=== PATIENT | female | born 1940 | race Caucasian/White ===

== ENCOUNTER 2017-04-04 08:12 | Day surgery (SDC) | payer OTHER ==
[~2017-04-04 08:12] MED LIST: PROPARACAINE 0.5% OPHTH SOL 15ML OS
[2017-04-04] MEDS: OFLOXACIN 0.3 % (OCUFLOX) OPTH SOL 5ML OS (09:21)
[2017-04-04] MEDS: TROPICAMIDE 1% OPHTH SOLN 2ML OS (09:22)
[2017-04-04] MEDS: PHENYLEPHRINE 2.5% OPHTH SOL 2ML OS (09:22)
[2017-04-04] MEDS ORDERED: fentaNYL 100 MCG/2 ML INJECTION (J3010) As Ordered (09:48)
[2017-04-04] MEDS ORDERED: MIDAZOLAM INJ 2 MG/2 ML VIAL (J2250) As Ordered (09:49)
[2017-04-04] MEDS: POVIDONE-IODINE 5% OPHTH PREP SOL 30ML As Ordered (09:50)
[2017-04-04] MEDS: LIDOCAINE 0.75%/EPINEPHRINE 0.025% IN BSS 1ML SYR INTRACAMERAL (OR ONLY) As Ordered (09:54)
[2017-04-04] MEDS: DUOVISC (0.50ML VISCOAT/0.55ML PROVISC) OPHTH KIT As Ordered (09:54)
[2017-04-04] MEDS: ACETYLCHOLINE OPHTH SOLN 1% 2ML (MIOCHOL-E) As Ordered (09:54)
[2017-04-04] MEDS: BALANCED SALT IRRIGATION SOLUTION 500ML BAG (FOR OR EYE MACHINE) As Ordered (09:54)
[2017-04-04] MEDS: CEFUROXIME 1MG/0.1ML INTRACAMERAL INJ As Ordered (09:55)
[2017-04-04] MEDS ORDERED: ONDANSETRON 4MG/2ML VIAL (J2405) As Ordered (10:25)
[2017-04-04] MEDS: ONDANSETRON 4MG/2ML VIAL (J2405) IV (10:27)
[2017-04-04] MEDS: METOCLOPRAMIDE 10 MG TAB PO (11:10)
== END 2017-04-04 11:48 | disposition home or self-care (01) ==
LOC: M SDC 08:12
DX: H25.12 Age-related nuclear cataract, left eye (principal); I10 Essential (primary) hypertension; E78.5 Hyperlipidemia, unspecified; Z87.891 Personal history of nicotine dependence; Z79.899 Other long term (current) drug therapy; Z88.8 Allergy status to other drugs, medicaments and biological substances
CPT/HCPCS: 66984

== ENCOUNTER 2017-04-11 07:29 | Day surgery (SDC) | payer OTHER ==
[2017-04-11] MEDS: PHENYLEPHRINE 2.5% OPHTH SOL 2ML OS (08:00)
[2017-04-11] MEDS ORDERED: LIDOCAINE 1% MDV 20ML VIAL SQ (08:00)
[2017-04-11] MEDS: PROPARACAINE 0.5% OPHTH SOL 15ML OS (08:05)
[2017-04-11] MEDS: TROPICAMIDE 1% OPHTH SOLN 2ML OS (08:10)
[2017-04-11] MEDS: OFLOXACIN 0.3 % (OCUFLOX) OPTH SOL 5ML OS (08:10)
[2017-04-11] MEDS ORDERED: METOCLOPRAMIDE INJ 10MG/2ML VIAL (J2765) As Ordered (08:29)
[2017-04-11] MEDS ORDERED: fentaNYL 100 MCG/2 ML INJECTION (J3010) As Ordered (08:36)
[2017-04-11] MEDS ORDERED: MIDAZOLAM INJ 2 MG/2 ML VIAL (J2250) As Ordered (08:36)
[2017-04-11] MEDS ORDERED: METOCLOPRAMIDE INJ 10MG/2ML VIAL (J2765) IV (09:00)
[2017-04-11] MEDS: POVIDONE-IODINE 5% OPHTH PREP SOL 30ML As Ordered (09:02)
[2017-04-11] MEDS: LIDOCAINE 0.75%/EPINEPHRINE 0.025% IN BSS 1ML SYR INTRACAMERAL (OR ONLY) As Ordered (09:03)
[2017-04-11] MEDS ORDERED: ONDANSETRON 4MG/2ML VIAL (J2405) As Ordered (09:06)
[2017-04-11] MEDS ORDERED: dexameTHASONE 4 MG/ML 1ML VIAL (J1100) As Ordered (09:06)
[2017-04-11] MEDS: BALANCED SALT IRRIGATION SOLUTION 500ML BAG (FOR OR EYE MACHINE) As Ordered (09:08)
[2017-04-11] MEDS: CEFUROXIME 1MG/0.1ML INTRACAMERAL INJ As Ordered (09:09)
[2017-04-11] MEDS: DUOVISC (0.50ML VISCOAT/0.55ML PROVISC) OPHTH KIT As Ordered (09:09)
[2017-04-11] MEDS: ACETYLCHOLINE OPHTH SOLN 1% 2ML (MIOCHOL-E) As Ordered (09:09)
== END 2017-04-11 10:05 | disposition home or self-care (01) ==
LOC: M SDC 07:29
DX: H25.11 Age-related nuclear cataract, right eye (principal); I11.9 Hypertensive heart disease without heart failure; F17.210 Nicotine dependence, cigarettes, uncomplicated; M19.90 Unspecified osteoarthritis, unspecified site; Z79.899 Other long term (current) drug therapy
CPT/HCPCS: 66984

== ENCOUNTER 2018-11-03 22:36 | Emergency (ER) | payer MEDICARE, OTHER ==
[~2018-11-03] VITALS: Ht 134.6 cm; Wt 81.8 kg
[~2018-11-03 22:36] MED LIST changes: +ACET650T3 PO; +ALLE180T33 PO; +AMLO10TA5 PO; +AMLO5TAB6 PO; +ASTE0.15; +ATOR1TAB19 PO; +AZEL0.1S3; +DRIS50003 PO; +FOSA70TA PO; +FURO20TA2 PO; +HYDR-3910 PO; +HYDR12.55 PO; +POTA10TA16 PO; +PROAAER10 INH; -PROPARACAINE 0.5% OPHTH SOL 15ML OS; +VITA200015 PO
[2018-11-03 23:28] VITALS: BP 160/90
--- NOTE | 2018-11-04 07:38 | REP ---
Clinical: Trauma. Technique: AP and lateral views of the right humerus. Findings: Comminuted intercondylar fracture of the distal humerus. Remainder examination demonstrates age-related degenerative change. Impression: Comminuted intercondylar fracture of the distal humerus. Electronically Signed by Raphael Vincent MD 11/04/2018 07:30 A
--- NOTE | 2018-11-04 07:47 | REP ---
Clinical: Trauma. Technique: AP, lateral, bilateral oblique views of the right elbow. Findings: Comminuted intercondylar/supracondylar fracture of the distal humerus. Underlying osteopenia and degenerative changes are appreciated. Subtle injuries involving the radial head cannot be excluded. Impression: Comminuted intercondylar/supracondylar fracture of the distal humerus. Electronically Signed by Raphael Vincent MD 11/04/2018 07:38 A
== END 2018-11-04 02:34 | disposition home or self-care (01) ==
LOC: M ED 22:36
DX: S42.401A Unspecified fracture of lower end of right humerus, initial encounter for closed fracture (principal); W01.198A Fall on same level from slipping, tripping and stumbling with subsequent striking against other object, initial encounter; Y92.018 Other place in single-family (private) house as the place of occurrence of the external cause; J45.909 Unspecified asthma, uncomplicated; I10 Essential (primary) hypertension; E78.5 Hyperlipidemia, unspecified; Z79.899 Other long term (current) drug therapy; Z88.8 Allergy status to other drugs, medicaments and biological substances

== ENCOUNTER 2018-11-07 12:30 | Emergency (ER) | payer MEDICARE ==
[~2018-11-07] VITALS: Ht 134.6 cm; Wt 81.8 kg
[2018-11-07 15:26] VITALS: BP 148/70
== END 2018-11-07 15:28 | disposition home or self-care (01) ==
LOC: M ED 12:30
DX: Z47.89 Encounter for other orthopedic aftercare (principal); Z88.8 Allergy status to other drugs, medicaments and biological substances; Z79.899 Other long term (current) drug therapy

== ENCOUNTER 2018-12-31 09:41 | Outpatient (RCR) | payer MEDICARE | END 2019-01-01 | LOC: M PT 09:41 | PROVIDERS: ATTEND Physician Assistant Surgical | DX: S42.42 Comminuted supracondylar fracture without intercondylar fracture of humerus (principal); X58.XXXD Exposure to other specified factors, subsequent encounter ==

== ENCOUNTER 2019-01-27 11:51 | Outpatient (RCR) | payer MEDICARE | END 2019-01-31 | LOC: M PT 11:51 | PROVIDERS: ATTEND Physician Assistant Surgical | DX: Z47.89 Encounter for other orthopedic aftercare (principal) ==

== ENCOUNTER 2019-02-05 10:39 | Outpatient (RCR) | payer MEDICARE | END 2019-03-03 | LOC: M PT 10:39 | PROVIDERS: ATTEND Physician Assistant Surgical | DX: S42.42 Comminuted supracondylar fracture without intercondylar fracture of humerus (principal); X58.XXXD Exposure to other specified factors, subsequent encounter ==

== ENCOUNTER → 2020-03-01 | Outpatient (REF) | payer MEDICARE ==
[~2020-03-01] MED LIST changes: -AMLO10TA5 PO; +AMLO1TAB24 PO; +AMLO1TAB25 PO; -AMLO5TAB6 PO
[2020-03-01 16:44] LABS: BACTERIA, URINE AUTO 2+ (NEGATIVE); MUCUS, URINE SMALL (NEGATIVE); RBC, URINE AUTO 29 /HPF (0-3); SQUAMOUS EPITHELIAL CELL UR AU 5 /HPF (0-6); WBC, URINE AUTO 74 /HPF (0-3)
== END ==
LOC: M LAB REF 16:18
PROVIDERS: ATTEND Internal Medicine
DX: R31.9 Hematuria, unspecified (principal); N39.0 Urinary tract infection, site not specified

== ENCOUNTER → 2020-03-28 | Outpatient (REF) | payer MEDICARE | LOC: M LAB REF 16:12 | PROVIDERS: ATTEND Internal Medicine | DX: N39.0 Urinary tract infection, site not specified (principal) ==

== ENCOUNTER → 2020-05-02 | Outpatient (REF) | payer MEDICARE | LOC: M LAB REF 12:19 | PROVIDERS: ATTEND Internal Medicine | DX: N39.0 Urinary tract infection, site not specified (principal) ==

== ENCOUNTER → 2020-05-17 | Outpatient (REF) | payer MEDICARE | LOC: M LAB REF 17:19 | PROVIDERS: ATTEND Internal Medicine | DX: R31.9 Hematuria, unspecified (principal); N39.0 Urinary tract infection, site not specified ==

== ENCOUNTER → 2020-06-01 | Outpatient (REF) | payer MEDICARE ==
[2020-06-01 13:01] LABS: BACTERIA, URINE AUTO NEGATIVE (NEGATIVE); RBC, URINE AUTO TNTC /HPF (0-3); SQUAMOUS EPITHELIAL CELL UR AU 3 /HPF (0-6); WBC, URINE AUTO TNTC /HPF (0-3)
== END ==
LOC: M LAB REF 12:08
PROVIDERS: ATTEND Internal Medicine
DX: R35.0 Frequency of micturition (principal)

== ENCOUNTER → 2020-10-31 | Outpatient (REF) | payer MEDICARE ==
[2020-11-02 08:02] LABS: PERCENT SATURATION 11.1 % (13.2-45.0)
== END ==
LOC: M LAB REF 15:55
PROVIDERS: ATTEND Internal Medicine
DX: N18.31 Chronic kidney disease, stage 3a (principal); D64.9 Anemia, unspecified

== ENCOUNTER → 2020-11-24 | Outpatient (CLI) | payer MEDICARE ==
--- NOTE | 2020-11-24 14:22 | REP ---
INDICATION: PVCS. COMPARISON: PA and lateral chest, 05/14/2016. TECHNIQUE: PA and lateral chest images were obtained. FINDINGS: There is chronic interstitial lung disease. There is no evidence of lobar consolidation or pleural effusion. There is cardiomegaly without congestive heart failure. There is calcific vascular disease of the thoracic aorta. The upper abdominal bowel gas pattern is normal. There are no significant bony abnormalities of the chest. IMPRESSION: 1. Chronic interstitial lung disease. 2. Cardiomegaly. 3. No evidence of acute cardiopulmonary pathology. <Electronically signed by Navin Lee > 11/24/20 [id number]
== END ==
LOC: M WUC 13:21
PROVIDERS: ATTEND Internal Medicine
DX: J94.8 Other specified pleural conditions (principal)

== ENCOUNTER → 2021-02-07 | Outpatient (CLI) | payer MEDICARE ==
[2021-02-07 16:39] LABS: ALBUMIN 2.8 GM/DL (3.2-5.2); CALCIUM LEVEL 8.9 MG/DL (8.8-10.2); CREATININE FOR GFR 1.58 MG/DL (0.55-1.30); GLOMERULAR FILTRATION RATE 33.4 (>32); MAGNESIUM LEVEL 1.9 MG/DL (1.8-2.4); PHOSPHORUS LEVEL 4.2 MG/DL (2.5-4.9); POTASSIUM SERUM 3.8 MEQ/L (3.5-5.1)
== END ==
LOC: M WUC 10:16
PROVIDERS: ATTEND Internal Medicine Cardiovascular Disease
DX: I11.9 Hypertensive heart disease without heart failure (principal)

== ENCOUNTER → 2021-03-01 | Outpatient (REF) | payer MEDICARE ==
[2021-03-01 17:53] LABS: PERCENT SATURATION 7.3 % (13.2-45.0)
== END ==
LOC: M LAB REF 16:21
PROVIDERS: ATTEND Internal Medicine
DX: D50.9 Iron deficiency anemia, unspecified (principal)

== ENCOUNTER → 2021-03-02 | Outpatient (CLI) | payer MEDICARE ==
--- NOTE | 2021-03-06 20:56 | SLEEPHOME ---
DATE: 03/02/2021 ORDERED BY: Kennedy Mancini MD Diagnostic home sleep testing was performed due to concern for the obstructive sleep apnea syndrome in this patient with a history of cor pulmonale. For testing, a [employer] T3 respiratory monitoring device was used. Continuous record was made of pulse, oxygen saturation, air flow, chest and abdominal strain, and body position. Nine hours and 46 minutes of data were reviewed. There were 5 hours and 19 minutes marked as time in bed. During the interval marked time in bed, there were 36 respiratory events identified of 10 seconds in duration or greater for a respiratory event index of 6.8. The events were obstructive. Baseline pulse rate was 66. Pulse rate ranged 41 to 101. Baseline saturation was just 90%. Saturations fell to 79% and the oxygen desaturation index was 3.4. Testing was performed in both the supine and nonsupine positions. IMPRESSION: Abnormal home sleep testing with repetitive respiratory events and oxygen desaturations to 79% with a respiratory event index of 6.8 is consistent with the obstructive sleep apnea syndrome. RECOMMENDATION: The patient should be encouraged to undergo a formal sleep evaluation.
== END ==
LOC: M SLEEP HO 02-20 10:23
PROVIDERS: ATTEND Internal Medicine Cardiovascular Disease
DX: R60.0 Localized edema (principal); I27.81 Cor pulmonale (chronic)

== ENCOUNTER → 2021-04-18 | Outpatient (REF) | payer MEDICARE ==
[~2021-04-18] MED LIST changes: +POTA-149 PO; -POTA10TA16 PO
[2021-04-18 18:16] LABS: TOTAL PROTEIN,RANDOM URINE 158.6 MG/DL (0.0-12.0)
[2021-04-19 09:45] LABS: TOTAL PROTEIN 6.6 GM/DL (6.4-8.2)
[2021-04-19 13:01] LABS: ALPHA-1-GLOBULINS 0.46 GM/DL (0.17-0.41); ALPHA-2-GLOBULINS 0.96 GM/DL (0.42-0.99); ALPHA-2-GLOBULINS % 14.5 % (7.1-11.8); BETA-1-GLOBULINS % 7.6 % (4.7-7.2); BETA-2-GLOBULINS 0.36 GM/DL (0.19-0.55); BETA-2-GLOBULINS % 5.5 % (3.2-6.5); GAMMA GLOBULIN % 15.4 % (11.1-18.8); GAMMA GLOBULINS 1.02 GM/DL (0.65-1.58)
== END ==
LOC: M LAB REF 17:01
PROVIDERS: ATTEND Internal Medicine Nephrology
DX: N18.32 Chronic kidney disease, stage 3b (principal); D63.1 Anemia in chronic kidney disease

== ENCOUNTER 2021-04-24 12:35 | Outpatient (CLI) | payer MEDICARE ==
[~2021-04-24] VITALS: Ht 123.2 cm; Wt 78.6 kg
[~2021-04-24 12:35] MED LIST changes: +ALBUTEROL SULFATE 2.5 MG/0.5 ML INH NEB SOLN INH PRN; +EPINEPHrine INJ 1 MG/ML 1ML AMP IM PRN; +IRON SUCROSE 25 MG in NS 25 ML IV ONE; +IRON SUCROSE 500 MG in NS 475 ML IV ONE; +NS 1,000 ML IV SCH; +diphenhydrAMINE 50MG/ML VIAL (J1200) IV PRN; +methylPREDNISolone 125MG 2ML VIAL IV PRN
[2021-04-24 13:03] VITALS: BP 177/72
[2021-04-24 14:14] VITALS: BP 131/59
[2021-04-24 15:10] VITALS: BP 150/66
[2021-04-24 16:10] VITALS: BP 143/72
[2021-04-24 17:28] VITALS: BP 132/78
[2021-04-24 18:00] VITALS: BP 133/58
== END 2021-04-24 18:20 | disposition home or self-care (01) ==
LOC: M INFU 12:35
PROVIDERS: ATTEND Internal Medicine Nephrology
DX: N18.9 Chronic kidney disease, unspecified (principal); D63.1 Anemia in chronic kidney disease; Z88.6 Allergy status to analgesic agent
CPT/HCPCS: 96365; 96366; J1756

== ENCOUNTER → 2021-05-04 | Outpatient (CLI) | payer MEDICARE ==
[~2021-05-04] MED LIST changes: -ALBUTEROL SULFATE 2.5 MG/0.5 ML INH NEB SOLN INH PRN; -EPINEPHrine INJ 1 MG/ML 1ML AMP IM PRN; -IRON SUCROSE 25 MG in NS 25 ML IV ONE; -IRON SUCROSE 500 MG in NS 475 ML IV ONE; -NS 1,000 ML IV SCH; -diphenhydrAMINE 50MG/ML VIAL (J1200) IV PRN; -methylPREDNISolone 125MG 2ML VIAL IV PRN
== END ==
LOC: M RAD 11:58
PROVIDERS: ATTEND Internal Medicine Nephrology
DX: N18.31 Chronic kidney disease, stage 3a (principal)

== ENCOUNTER → 2021-05-18 | Outpatient (CLI) | payer MEDICARE ==
[~2021-05-18] MED LIST changes: +ACET650T15 PO; +ADV250INH INH; +AZEL0.1S NARES; +FARX1TAB3 PO; +FERR324T2 PO; +META0.52 PO; +METO1TAB32 PO; +SENN-111 PO; +TORS10TA3 PO; +VITA100093 PO
== END ==
LOC: M LABSMTC 10:08
PROVIDERS: ATTEND Anesthesiology
DX: Z01.818 Encounter for other preprocedural examination (principal); Z11.52 Encounter for screening for COVID-19

== ENCOUNTER 2021-05-23 09:34 | Day surgery (SDC) | payer MEDICARE ==
[~2021-05-23] VITALS: Ht 134.6 cm; Wt 78.5 kg
[~2021-05-23 09:34] MED LIST changes: +LIDOCAINE 2% 100MG/5ML SDV (FOR ANES.) As Ordered ONE; +NS 1,000 ML IV ONE; +fentaNYL 100 MCG/2 ML INJECTION As Ordered ONE; +propofoL 200 MG/20 ML VIAL As Ordered ONE
[2021-05-23] MEDS ORDERED: LABETALOL 100MG/20ML VIAL As Ordered ONE (10:36)
[2021-05-23 12:05] VITALS: BP 136/77
== END 2021-05-23 13:03 | disposition home or self-care (01) ==
LOC: M OPP 09:34
PROVIDERS: ATTEND Internal Medicine Gastroenterology
DX: D12.6 Benign neoplasm of colon, unspecified (principal); C20 Malignant neoplasm of rectum; K62.89 Other specified diseases of anus and rectum; D49.0 Neoplasm of unspecified behavior of digestive system; K57.30 Diverticulosis of large intestine without perforation or abscess without bleeding; K56.690 Other partial intestinal obstruction; D50.9 Iron deficiency anemia, unspecified; K20.90 Esophagitis, unspecified without bleeding; R94.31 Abnormal electrocardiogram [ECG] [EKG]; I11.0 Hypertensive heart disease with heart failure; I50.9 Heart failure, unspecified; E78.5 Hyperlipidemia, unspecified; Z78.0 Asymptomatic menopausal state; J44.9 Chronic obstructive pulmonary disease, unspecified; Z88.6 Allergy status to analgesic agent; Z79.899 Other long term (current) drug therapy
CPT/HCPCS: 43239; 45380; 45385; 88305; J3010

== ENCOUNTER → 2021-05-29 | Outpatient (CLI) | payer MEDICARE ==
[~2021-05-29] MED LIST changes: -LIDOCAINE 2% 100MG/5ML SDV (FOR ANES.) As Ordered ONE; -NS 1,000 ML IV ONE; -fentaNYL 100 MCG/2 ML INJECTION As Ordered ONE; -propofoL 200 MG/20 ML VIAL As Ordered ONE
[2021-05-29 15:51] LABS: BASO # 0.1 10^3/uL (0.0-0.2); BASO % 0.5 % (0.0-1.0); EOS # 0.2 10^3/uL (0.0-0.5); HEMATOCRIT 35.8 % (36.0-47.0); HEMOGLOBIN 10.9 g/dl (12.0-15.5); LYMPH # 3.6 10^3/uL (1.5-5.0); LYMPH % 38.2 % (24.0-44.0); MEAN CORPUSCULAR HEMOGLOBIN 26.1 pg (27.0-33.0); MEAN CORPUSCULAR HGB CONC 30.4 g/dl (32.0-36.5); MEAN CORPUSCULAR VOLUME 85.6 fl (80.0-96.0); MONO # 0.7 10^3/uL (0.0-0.8); MONO % 7.4 % (2.0-8.0); NEUTROPHILS # 4.9 10^3/uL (1.5-8.5); NEUTROPHILS % 51.7 % (36.0-66.0); PLATELET COUNT, AUTOMATED 275 10^3/uL (150-450); RED BLOOD COUNT 4.18 10^6/uL (4.00-5.40); WHITE BLOOD COUNT 9.5 10^3/uL (4.0-10.0)
[2021-05-29 15:52] LABS: APPEARANCE, URINE CLOUDY (CLEAR); BACTERIA, URINE AUTO NEGATIVE (NEGATIVE); BILIRUBIN, URINE AUTO NEGATIVE (NEGATIVE); BLOOD, URINE BLOOD 3+ (NEGATIVE); COLOR, URINE YELLOW (YELLOW); GLUCOSE, URINE (UA) AUTO 3+ mg/dL (NEGATIVE); KETONE, URINE AUTO NEGATIVE (NEGATIVE); LEUKOCYTE ESTERASE, URINE AUTO TRACE (NEGATIVE); NITRITE, URINE AUTO NEGATIVE (NEGATIVE); PROTEIN, URINE AUTO 2+ mg/dL (NEGATIVE); RBC, URINE AUTO TNTC /HPF (0-3); SPECIFIC GRAVITY URINE AUTO 1.018 (1.002-1.035); SQUAMOUS EPITHELIAL CELL UR AU 5 /HPF (0-6); UROBILINOGEN, URINE AUTO 0.2 mg/dL (0.0-2.0); WBC, URINE AUTO TNTC /HPF (0-3)
[2021-05-29 16:29] LABS: ALBUMIN 2.8 GM/DL (3.2-5.2); CALCIUM LEVEL 8.5 MG/DL (8.8-10.2); CREATININE FOR GFR 1.26 MG/DL (0.55-1.30); GLOMERULAR FILTRATION RATE 43.4 (>32); PHOSPHORUS LEVEL 3.6 MG/DL (2.5-4.9); POTASSIUM SERUM 3.5 MEQ/L (3.5-5.1)
== END ==
LOC: M WUC 13:34
PROVIDERS: ATTEND Internal Medicine Nephrology
DX: N18.32 Chronic kidney disease, stage 3b (principal); D63.1 Anemia in chronic kidney disease

== ENCOUNTER → 2021-05-29 | Outpatient (CLI) | payer MEDICARE ==
[2021-05-29 15:52] LABS: BASO % 0.4 % (0.0-1.0); EOS # 0.2 10^3/uL (0.0-0.5); HEMATOCRIT 35.9 % (36.0-47.0); LYMPH # 3.3 10^3/uL (1.5-5.0); LYMPH % 37.1 % (24.0-44.0); MEAN CORPUSCULAR HEMOGLOBIN 25.9 pg (27.0-33.0); MEAN CORPUSCULAR HGB CONC 30.6 g/dl (32.0-36.5); MEAN CORPUSCULAR VOLUME 84.7 fl (80.0-96.0); MONO # 0.7 10^3/uL (0.0-0.8); NEUTROPHILS # 4.7 10^3/uL (1.5-8.5); NEUTROPHILS % 52.2 % (36.0-66.0); PLATELET COUNT, AUTOMATED 262 10^3/uL (150-450); RED BLOOD COUNT 4.24 10^6/uL (4.00-5.40)
[2021-05-29 16:29] LABS: CALCIUM LEVEL 8.6 MG/DL (8.8-10.2); CREATININE FOR GFR 1.21 MG/DL (0.55-1.30); GLOMERULAR FILTRATION RATE 45.5 (>32); MAGNESIUM LEVEL 2.3 MG/DL (1.8-2.4); POTASSIUM SERUM 3.5 MEQ/L (3.5-5.1)
[2021-05-29 17:15] LABS: HEMOGLOBIN A1c 5.6 %
== END ==
LOC: M WUC 13:30
PROVIDERS: ATTEND Internal Medicine
DX: I50.32 Chronic diastolic (congestive) heart failure (principal); I13.0 Hypertensive heart and chronic kidney disease with heart failure and stage 1 through stage 4 chronic kidney disease, or unspecified chronic kidney disease; R73.09 Other abnormal glucose; N18.9 Chronic kidney disease, unspecified; D50.0 Iron deficiency anemia secondary to blood loss (chronic)

== ENCOUNTER → 2021-05-29 | Outpatient (CLI) | payer MEDICARE ==
[2021-05-29 15:52] LABS: BASO % 0.4 % (0.0-1.0); EOS # 0.2 10^3/uL (0.0-0.5); HEMATOCRIT 35.8 % (36.0-47.0); HEMOGLOBIN 10.8 g/dl (12.0-15.5); LYMPH # 3.1 10^3/uL (1.5-5.0); LYMPH % 37.4 % (24.0-44.0); MEAN CORPUSCULAR HEMOGLOBIN 25.7 pg (27.0-33.0); MEAN CORPUSCULAR HGB CONC 30.2 g/dl (32.0-36.5); MEAN CORPUSCULAR VOLUME 85.2 fl (80.0-96.0); MONO # 0.6 10^3/uL (0.0-0.8); MONO % 7.3 % (2.0-8.0); NEUTROPHILS # 4.4 10^3/uL (1.5-8.5); NEUTROPHILS % 52.7 % (36.0-66.0); PLATELET COUNT, AUTOMATED 221 10^3/uL (150-450); WHITE BLOOD COUNT 8.4 10^3/uL (4.0-10.0)
[2021-05-29 16:19] LABS: CREATININE FOR GFR 1.28 MG/DL (0.55-1.30); GLOMERULAR FILTRATION RATE 42.6 (>32); PHOSPHORUS LEVEL 3.9 MG/DL (2.5-4.9); POTASSIUM SERUM 3.6 MEQ/L (3.5-5.1)
== END ==
LOC: M WUC 13:38
PROVIDERS: ATTEND Internal Medicine Cardiovascular Disease
DX: I50.32 Chronic diastolic (congestive) heart failure (principal); D50.0 Iron deficiency anemia secondary to blood loss (chronic); I13.0 Hypertensive heart and chronic kidney disease with heart failure and stage 1 through stage 4 chronic kidney disease, or unspecified chronic kidney disease; R73.09 Other abnormal glucose; N18.9 Chronic kidney disease, unspecified

== ENCOUNTER → 2021-06-02 | Outpatient (CLI) | payer MEDICARE ==
[~2021-06-02] MED LIST changes: +GASTROGRAFIN SOLUTION 30ML (Q9963) ONE; +ISOVUE-370 76% 100ML VIAL ONE
== END ==
LOC: M PLAIMG 09:03
PROVIDERS: ATTEND Internal Medicine Gastroenterology
DX: C20 Malignant neoplasm of rectum (principal)
CPT/HCPCS: 71270; 74178; Q9963; Q9967

== ENCOUNTER → 2021-06-14 | Outpatient (CLI) | payer MEDICARE ==
[~2021-06-14] MED LIST changes: +ALBU8.5H; -GASTROGRAFIN SOLUTION 30ML (Q9963) ONE; -ISOVUE-370 76% 100ML VIAL ONE; +MIRA3350 PO; +OMEP1CAP73 PO; +SPIR-10 PO
== END ==
LOC: M ONCR 11:11
PROVIDERS: ATTEND General Practice
DX: C20 Malignant neoplasm of rectum (principal); N28.89 Other specified disorders of kidney and ureter; R91.8 Other nonspecific abnormal finding of lung field; Z80.1 Family history of malignant neoplasm of trachea, bronchus and lung; Z87.891 Personal history of nicotine dependence; Z88.6 Allergy status to analgesic agent; Z88.8 Allergy status to other drugs, medicaments and biological substances

== ENCOUNTER → 2021-06-20 | Outpatient (POV) | payer MEDICARE ==
[~2021-06-20] VITALS: Ht 134.6 cm; Wt 74.5 kg
[2021-06-20 11:05] VITALS: BP 140/60
== END ==
LOC: M IRPOV 10:57
PROVIDERS: ATTEND Radiology Diagnostic Radiology
DX: N28.89 Other specified disorders of kidney and ureter (principal)

== ENCOUNTER → 2021-07-10 | Outpatient (CLI) | payer MEDICARE ==
[~2021-07-10] MED LIST changes: +LIDOCAINE 1% MDV 20ML VIAL As Ordered ONE
[2021-07-10 11:49] VITALS: BP 145/60
== END ==
LOC: M IRPRO 08:49
PROVIDERS: ATTEND Surgery
DX: C64.2 Malignant neoplasm of left kidney, except renal pelvis (principal); C20 Malignant neoplasm of rectum

== ENCOUNTER → 2021-07-17 | Outpatient (CLI) | payer MEDICARE ==
[~2021-07-17] MED LIST changes: -LIDOCAINE 1% MDV 20ML VIAL As Ordered ONE
== END ==
LOC: M PLARAD 11:13
PROVIDERS: ATTEND Specialist
DX: C20 Malignant neoplasm of rectum (principal); N28.89 Other specified disorders of kidney and ureter; R91.8 Other nonspecific abnormal finding of lung field
CPT/HCPCS: 78815; A9552

== ENCOUNTER → 2021-07-20 | Outpatient (CLI) | payer MEDICARE | LOC: M ONCR 10:51 | PROVIDERS: ATTEND General Practice | DX: C20 Malignant neoplasm of rectum (principal); C68.0 Malignant neoplasm of urethra; R91.1 Solitary pulmonary nodule ==

== ENCOUNTER 2021-07-21 08:16 | Outpatient (RCR) | payer MEDICARE | END 2021-08-01 | LOC: M ONCR 08:16 | PROVIDERS: ATTEND General Practice | DX: C20 Malignant neoplasm of rectum (principal) ==

== ENCOUNTER 2021-08-08 13:05 | Outpatient (RCR) | payer MEDICARE ==
[2021-08-11] MEDS ORDERED: VITA100093 PO (09:02)
[2021-08-11] MEDS ORDERED: SALI0.6530 NARES (09:02)
[2021-08-21] MEDS ORDERED: LEVO500T4 PO (08:45)
[2021-08-21] MEDS ORDERED: VITMTA PO (13:38)
[2021-08-29] MEDS ORDERED: ONDA-84 PO (09:27)
[2021-08-29] MEDS ORDERED: PROC10TA5 PO (09:27)
[2021-08-29] MEDS ORDERED: LIDO1CRE42 TOP (09:28)
== END 2021-08-31 ==
LOC: M ONCR 13:05
PROVIDERS: ATTEND General Practice
DX: C20 Malignant neoplasm of rectum (principal)

== ENCOUNTER → 2021-08-11 | Outpatient (CLI) | payer MEDICARE ==
[~2021-08-11] MED LIST changes: +HOME MED LIST COMPLETE! XX SCH; +LIDOCAINE 1% MDV 20ML VIAL As Ordered ONE; +SALI0.6530 NARES
[2021-08-11 12:15] VITALS: BP 147/67
== END ==
LOC: M IRPRO 08:17
PROVIDERS: ATTEND General Practice
DX: C78.02 Secondary malignant neoplasm of left lung (principal); J95.811 Postprocedural pneumothorax

== ENCOUNTER → 2021-08-17 | Outpatient (CLI) | payer MEDICARE ==
[~2021-08-17] MED LIST changes: -HOME MED LIST COMPLETE! XX SCH; -LIDOCAINE 1% MDV 20ML VIAL As Ordered ONE
== END ==
LOC: M LABSMTC 11:44
PROVIDERS: ATTEND Anesthesiology
DX: Z20.828 Contact with and (suspected) exposure to other viral communicable diseases (principal); Z11.59 Encounter for screening for other viral diseases

== ENCOUNTER → 2021-08-21 | Outpatient (CLI) | payer MEDICARE ==
[~2021-08-21] MED LIST changes: +LEVO500T4 PO; +LIDOCAINE 1% MDV 20ML VIAL As Ordered ONE; +MIDAZOLAM INJ 2MG/2ML VIAL (J2250 PER 1MG) As Ordered ONE; +NS 1,000 ML IV SCH; +VITMTA PO; +ceFAZolin 2 GM/D5W 50 ML IV BAG (J0690 PER 500MG) As Ordered ONE; +ceFAZolin SOD 2 GM in IV 1 EA IV ONE; +diphenhydrAMINE 50MG/ML VIAL (J1200) As Ordered ONE; +fentaNYL 100 MCG/2 ML INJECTION As Ordered ONE
[2021-08-21 17:00] VITALS: BP 143/86
== END ==
LOC: M IRPRO 12:41
PROVIDERS: ATTEND General Practice
DX: C65.2 Malignant neoplasm of left renal pelvis (principal); C20 Malignant neoplasm of rectum; C78.02 Secondary malignant neoplasm of left lung
CPT/HCPCS: 36561; 99152; 99153; C1769; C1788; C1894; J0690; J1200; J1642; J1644; J2250; J3010

== ENCOUNTER → 2021-09-12 | Outpatient (POV) | payer MEDICARE ==
[~2021-09-12] VITALS: Ht 134.6 cm; Wt 74.5 kg
[~2021-09-12] MED LIST changes: +LIDO1CRE42 TOP; -LIDOCAINE 1% MDV 20ML VIAL As Ordered ONE; -MIDAZOLAM INJ 2MG/2ML VIAL (J2250 PER 1MG) As Ordered ONE; -NS 1,000 ML IV SCH; +ONDA-84 PO; +PROC10TA5 PO; -ceFAZolin 2 GM/D5W 50 ML IV BAG (J0690 PER 500MG) As Ordered ONE; -ceFAZolin SOD 2 GM in IV 1 EA IV ONE; -diphenhydrAMINE 50MG/ML VIAL (J1200) As Ordered ONE; -fentaNYL 100 MCG/2 ML INJECTION As Ordered ONE
[2021-09-12 08:50] VITALS: BP 158/80
== END ==
LOC: M IRPOV 08:37
PROVIDERS: ATTEND Radiology Diagnostic Radiology
DX: Z45.2 Encounter for adjustment and management of vascular access device (principal); Z88.6 Allergy status to analgesic agent; Z88.8 Allergy status to other drugs, medicaments and biological substances

== ENCOUNTER → 2021-09-29 | Outpatient (REF) | payer MEDICARE ==
[2021-09-29 18:19] LABS: CREATININE,RANDOM URINE 66.1 MG/DL
[2021-09-29 18:27] LABS: PERCENT SATURATION 16.1 % (13.2-45.0)
== END ==
LOC: M LAB REF 16:40
PROVIDERS: ATTEND Internal Medicine Nephrology
DX: N18.32 Chronic kidney disease, stage 3b (principal); E61.1 Iron deficiency

== ENCOUNTER → 2021-11-13 | Outpatient (REF) | payer MEDICARE ==
[~2021-11-13] MED LIST changes: +ALEN70TA87 PO; -FOSA70TA PO; +LEVO1TAB39 PO; -LEVO500T4 PO; +TORS5TAB2 PO
[2021-11-13 10:43] LABS: CHOLESTEROL RISK RATIO 3.288 (<5); MAGNESIUM LEVEL 2.2 MG/DL (1.8-2.4); THYROID STIMULATING HORMONE 1.92 uIU/ML (0.358-3.740)
== END ==
LOC: M LAB REF 08:46
PROVIDERS: ATTEND Internal Medicine
DX: D50.9 Iron deficiency anemia, unspecified (principal); I10 Essential (primary) hypertension; E78.5 Hyperlipidemia, unspecified; E11.9 Type 2 diabetes mellitus without complications

== ENCOUNTER → 2021-11-14 | Outpatient (CLI) | payer MEDICARE | LOC: M ONCR 10:31 | PROVIDERS: ATTEND General Practice | DX: C20 Malignant neoplasm of rectum (principal); C65.2 Malignant neoplasm of left renal pelvis; C78.02 Secondary malignant neoplasm of left lung; D64.9 Anemia, unspecified; Z87.891 Personal history of nicotine dependence; Z79.51 Long term (current) use of inhaled steroids; Z79.899 Other long term (current) drug therapy; Z88.8 Allergy status to other drugs, medicaments and biological substances; Z92.21 Personal history of antineoplastic chemotherapy; Z92.3 Personal history of irradiation ==

== ENCOUNTER → 2021-11-21 | Outpatient (CLI) | payer MEDICARE ==
[~2021-11-21] MED LIST changes: +GASTROGRAFIN SOLUTION 30ML (Q9963) As Ordered ONE; +ISOVUE-370 76% 100ML VIAL As Ordered ONE
== END ==
LOC: M RAD 16:05
PROVIDERS: ATTEND General Practice
DX: C65.2 Malignant neoplasm of left renal pelvis (principal); C20 Malignant neoplasm of rectum; K80.20 Calculus of gallbladder without cholecystitis without obstruction; R91.8 Other nonspecific abnormal finding of lung field
CPT/HCPCS: 71260; 74177; Q9963; Q9967

== ENCOUNTER → 2021-11-29 | Outpatient (CLI) | payer MEDICARE ==
[~2021-11-29] MED LIST changes: -GASTROGRAFIN SOLUTION 30ML (Q9963) As Ordered ONE; -ISOVUE-370 76% 100ML VIAL As Ordered ONE
== END ==
LOC: M ONCR 13:40
PROVIDERS: ATTEND General Practice
DX: C20 Malignant neoplasm of rectum (principal); C78.02 Secondary malignant neoplasm of left lung; C65.2 Malignant neoplasm of left renal pelvis; K76.9 Liver disease, unspecified; Z79.2 Long term (current) use of antibiotics; Z79.51 Long term (current) use of inhaled steroids; Z87.891 Personal history of nicotine dependence; Z79.899 Other long term (current) drug therapy; Z88.8 Allergy status to other drugs, medicaments and biological substances; Z92.21 Personal history of antineoplastic chemotherapy; Z92.3 Personal history of irradiation

== ENCOUNTER → 2021-12-14 | Outpatient (CLI) | payer MEDICARE ==
[~2021-12-14] MED LIST changes: +LIDOCAINE 1% MDV 20ML VIAL As Ordered ONE
[2021-12-14 08:45] VITALS: BP 135/88
== END ==
LOC: M IRPRO 08:35
PROVIDERS: ATTEND Nurse Practitioner
DX: D37.6 Neoplasm of uncertain behavior of liver, gallbladder and bile ducts (principal); C20 Malignant neoplasm of rectum

== ENCOUNTER → 2021-12-29 | Outpatient (CLI) | payer MEDICARE ==
[~2021-12-29] MED LIST changes: -LIDOCAINE 1% MDV 20ML VIAL As Ordered ONE
== END ==
LOC: M ONCR 14:06
PROVIDERS: ATTEND General Practice
DX: C20 Malignant neoplasm of rectum (principal); C78.02 Secondary malignant neoplasm of left lung; C65.2 Malignant neoplasm of left renal pelvis; Z79.51 Long term (current) use of inhaled steroids; Z79.899 Other long term (current) drug therapy; Z87.891 Personal history of nicotine dependence; Z88.6 Allergy status to analgesic agent; Z88.8 Allergy status to other drugs, medicaments and biological substances

== ENCOUNTER → 2022-01-08 | Outpatient (REF) | payer MEDICARE ==
[2022-01-08 08:40] LABS: HEMATOCRIT 29.4 % (36.0-47.0); MEAN CORPUSCULAR HGB CONC 30.6 g/dl (32.0-36.5); MEAN CORPUSCULAR VOLUME 107.7 fl (80.0-96.0); PLATELET COUNT, AUTOMATED 116 10^3/uL (150-450); RED BLOOD COUNT 2.73 10^6/uL (4.00-5.40); WHITE BLOOD COUNT 3.9 10^3/uL (4.0-10.0)
[2022-01-08 09:18] LABS: ALBUMIN 2.7 GM/DL (3.2-5.2); BILIRUBIN,TOTAL 0.2 MG/DL (0.2-1.0); CALCIUM LEVEL 8.5 MG/DL (8.8-10.2); CREATININE FOR GFR 1.1 MG/DL (0.55-1.30); GLOMERULAR FILTRATION RATE 50.6 (>32); POTASSIUM SERUM 3.9 MEQ/L (3.5-5.1); TOTAL PROTEIN 6.2 GM/DL (6.4-8.2)
== END ==
LOC: M LAB REF 07:47
PROVIDERS: ATTEND Internal Medicine Cardiovascular Disease
DX: I50.32 Chronic diastolic (congestive) heart failure (principal)

== ENCOUNTER → 2022-03-15 | Outpatient (CLI) | payer MEDICARE ==
[~2022-03-15] MED LIST changes: +GASTROGRAFIN SOLUTION 30ML As Ordered ONE; +ISOVUE-370 76% 100ML VIAL As Ordered ONE
== END ==
LOC: M RAD 11:11
PROVIDERS: ATTEND Specialist
DX: N28.89 Other specified disorders of kidney and ureter (principal); R91.8 Other nonspecific abnormal finding of lung field; C18.9 Malignant neoplasm of colon, unspecified; K80.20 Calculus of gallbladder without cholecystitis without obstruction; K57.30 Diverticulosis of large intestine without perforation or abscess without bleeding
CPT/HCPCS: 71260; 74177; Q9963; Q9967

== ENCOUNTER → 2022-03-23 | Outpatient (CLI) | payer OTHER ==
[~2022-03-23] MED LIST changes: -GASTROGRAFIN SOLUTION 30ML As Ordered ONE; -ISOVUE-370 76% 100ML VIAL As Ordered ONE
== END ==
LOC: M ONCR 08:53
PROVIDERS: ATTEND General Practice
DX: C20 Malignant neoplasm of rectum (principal); C65.2 Malignant neoplasm of left renal pelvis; C78.02 Secondary malignant neoplasm of left lung; D64.9 Anemia, unspecified; R31.9 Hematuria, unspecified; Z79.899 Other long term (current) drug therapy; Z87.891 Personal history of nicotine dependence; Z88.8 Allergy status to other drugs, medicaments and biological substances; Z92.21 Personal history of antineoplastic chemotherapy; Z92.3 Personal history of irradiation

== ENCOUNTER 2022-04-02 10:07 | Outpatient (RCR) | payer OTHER | END 2022-04-03 | LOC: M ONCR 10:07 | PROVIDERS: ATTEND General Practice | DX: C65.2 Malignant neoplasm of left renal pelvis (principal) ==

== ENCOUNTER → 2022-04-24 | Outpatient (REF) | payer OTHER | LOC: M LAB REF 09:33 | PROVIDERS: ATTEND Internal Medicine Cardiovascular Disease | DX: I50.32 Chronic diastolic (congestive) heart failure (principal) ==

== ENCOUNTER 2022-04-30 13:05 | Outpatient (RCR) | payer MEDICARE, OTHER ==
[2022-05-02] MEDS ORDERED: ONDA-84 PO (10:29)
[2022-05-02] MEDS ORDERED: MAGN400T2 PO (10:35)
== END 2022-05-01 ==
LOC: M ONCR 13:05
PROVIDERS: ATTEND General Practice
DX: C65.2 Malignant neoplasm of left renal pelvis (principal); C20 Malignant neoplasm of rectum; C78.02 Secondary malignant neoplasm of left lung

== ENCOUNTER → 2022-06-07 | Outpatient (CLI) | payer OTHER ==
[~2022-06-07] MED LIST changes: +GASTROGRAFIN SOLUTION 30ML As Ordered ONE; +ISOVUE-370 76% 100ML VIAL As Ordered ONE; +MAGN400T2 PO; -SENN-111 PO; +SENN-188 PO
== END ==
LOC: M RAD 13:24
PROVIDERS: ATTEND Specialist
DX: C20 Malignant neoplasm of rectum (principal); C68.0 Malignant neoplasm of urethra
CPT/HCPCS: 71260; 74177; Q9963; Q9967

== ENCOUNTER 2022-06-27 13:43 | Outpatient (RCR) | payer OTHER ==
[~2022-06-27 13:43] MED LIST changes: +ALBU8.5H INH; -GASTROGRAFIN SOLUTION 30ML As Ordered ONE; -ISOVUE-370 76% 100ML VIAL As Ordered ONE
== END 2022-07-01 ==
LOC: M ONCR 13:43
PROVIDERS: ATTEND General Practice
DX: C78.7 Secondary malignant neoplasm of liver and intrahepatic bile duct (principal); C20 Malignant neoplasm of rectum; C65.2 Malignant neoplasm of left renal pelvis; C78.02 Secondary malignant neoplasm of left lung

== ENCOUNTER 2022-07-19 14:23 | Outpatient (RCR) | payer OTHER ==
[~2022-07-19 14:23] MED LIST changes: +CEPH500C PO; +PRED20TA
== END 2022-08-01 ==
LOC: M ONCR 14:23
PROVIDERS: ATTEND General Practice
DX: C78.7 Secondary malignant neoplasm of liver and intrahepatic bile duct (principal); C65.2 Malignant neoplasm of left renal pelvis; C20 Malignant neoplasm of rectum; C78.02 Secondary malignant neoplasm of left lung

== ENCOUNTER → 2022-10-19 | Outpatient (CLI) | payer OTHER ==
[~2022-10-19] MED LIST changes: +BACTDSTA PO; -LIDO1CRE42 TOP; +LIDO30CR18 TOP
== END ==
LOC: M ONCR 14:39
PROVIDERS: ATTEND Radiology Radiation Oncology
DX: C20 Malignant neoplasm of rectum (principal); C65.2 Malignant neoplasm of left renal pelvis; C78.02 Secondary malignant neoplasm of left lung; C78.7 Secondary malignant neoplasm of liver and intrahepatic bile duct; Z71.2 Person consulting for explanation of examination or test findings; Z79.52 Long term (current) use of systemic steroids; Z79.899 Other long term (current) drug therapy; Z87.891 Personal history of nicotine dependence; Z88.8 Allergy status to other drugs, medicaments and biological substances; Z92.3 Personal history of irradiation; Z92.21 Personal history of antineoplastic chemotherapy

== ENCOUNTER → 2023-01-03 | Outpatient (CLI) | payer OTHER ==
[~2023-01-03] MED LIST changes: +GASTROGRAFIN SOLUTION 30ML As Ordered ONE; +ISOVUE-370 76% 100ML VIAL As Ordered ONE
== END ==
LOC: M RAD 11:45
PROVIDERS: ATTEND Nurse Practitioner
DX: C18.9 Malignant neoplasm of colon, unspecified (principal)
CPT/HCPCS: 71260; 74177; Q9963; Q9967

== ENCOUNTER → 2023-01-16 | Outpatient (CLI) | payer OTHER ==
[~2023-01-16] MED LIST changes: -GASTROGRAFIN SOLUTION 30ML As Ordered ONE; -ISOVUE-370 76% 100ML VIAL As Ordered ONE
== END ==
LOC: M ONCR 10:02
PROVIDERS: ATTEND General Practice
DX: C78.02 Secondary malignant neoplasm of left lung (principal); C65.2 Malignant neoplasm of left renal pelvis; C78.7 Secondary malignant neoplasm of liver and intrahepatic bile duct; C20 Malignant neoplasm of rectum; Z71.2 Person consulting for explanation of examination or test findings; Z79.51 Long term (current) use of inhaled steroids; Z79.52 Long term (current) use of systemic steroids; Z79.84 Long term (current) use of oral hypoglycemic drugs; Z79.899 Other long term (current) drug therapy; Z87.891 Personal history of nicotine dependence; Z88.6 Allergy status to analgesic agent; Z88.8 Allergy status to other drugs, medicaments and biological substances; Z92.3 Personal history of irradiation; Z92.21 Personal history of antineoplastic chemotherapy

== ENCOUNTER → 2023-03-25 | Outpatient (CLI) | payer OTHER | LOC: M EKG 15:48 | PROVIDERS: ATTEND Specialist | DX: C18.9 Malignant neoplasm of colon, unspecified (principal) ==

== ENCOUNTER → 2023-05-08 | Outpatient (CLI) | payer OTHER ==
[~2023-05-08] MED LIST changes: +GASTROGRAFIN SOLUTION 30ML As Ordered ONE; -HYDR-3910 PO; +HYDR25TA87 PO; +ISOVUE-370 76% 100ML VIAL As Ordered ONE; -SALI0.6530 NARES; +SODI88SP NARES
== END ==
LOC: M RAD 12:34
PROVIDERS: ATTEND Specialist
DX: C18.9 Malignant neoplasm of colon, unspecified (principal)
CPT/HCPCS: 71260; 74177; Q9963; Q9967

== ENCOUNTER → 2023-05-20 | Outpatient (CLI) | payer OTHER ==
[~2023-05-20] MED LIST changes: +DIPH2.5T14 PO; -GASTROGRAFIN SOLUTION 30ML As Ordered ONE; -ISOVUE-370 76% 100ML VIAL As Ordered ONE
== END ==
LOC: M PLARAD 14:18
PROVIDERS: ATTEND Specialist
DX: C18.8 Malignant neoplasm of overlapping sites of colon (principal)
CPT/HCPCS: 78815; A9552

== ENCOUNTER 2023-05-23 15:40 | Inpatient (IN) | payer OTHER ==
[~2023-05-23] VITALS: Ht 157.5 cm; Wt 57.1 kg
[2023-05-23] MEDS ORDERED: NS 1,000 ML IV SCH (16:00)
[2023-05-23 16:33] LABS: VENOUS BASE EXCESS -4.8 (-2.0-2.0); VENOUS HCO3 20.4 MMOL/L (23.0-27.0); VENOUS O2 SATURATION 73.5 % (60.0-80.0); VENOUS PARTIAL PRESSURE CO2 38.2 mmHg (38.0-50.0); VENOUS PH 7.346 UNITS (7.330-7.430); VENOUS STANDARD HCO3 20.1 MMOL/L; VENOUS TOTAL CO2 21.6 MMOL/L (24.0-28.0)
[2023-05-23 17:07] LABS: ALBUMIN 2.3 G/DL (3.2-5.2); BILIRUBIN,DIRECT 1.1 MG/DL (<0.4); BILIRUBIN,TOTAL 1.6 MG/DL (0.3-1.2); CALCIUM LEVEL 7.7 MG/DL (8.3-10.6); CREATININE FOR GFR 1.16 MG/DL (0.55-1.30); GLOMERULAR FILTRATION RATE 47.5 (>32); POTASSIUM SERUM 3.4 MMOL/L (3.5-5.1); TOTAL PROTEIN 4.8 G/DL (5.7-8.2)
[2023-05-23 17:09] LABS: THYROID STIMULATING HORMONE 5.077 uIU/ML (0.55-4.78)
[2023-05-23] MEDS: NS 1,000 ML IV SCH (17:19)
[2023-05-23] MEDS: CEFEPIME HCL 2 GM in D5W MINI-BAG PLUS 50 ML IV ONE (17:23)
[2023-05-23 17:25] LABS: HEMATOCRIT 30.4 % (36.0-47.0); HEMOGLOBIN 9.5 g/dl (12.0-15.5); LYMPH # 0.4 10^3/uL (1.5-5.0); LYMPH % 40.2 % (24.0-44.0); MEAN CORPUSCULAR HGB CONC 31.3 g/dl (32.0-36.5); MEAN CORPUSCULAR VOLUME 102.4 fl (80.0-96.0); MONO # 0.3 10^3/uL (0.0-0.8); MONO % 27.5 % (2.0-8.0); NEUTROPHILS # 0.3 10^3/uL (1.5-8.5); NEUTROPHILS % 28.3 % (36.0-66.0); RED BLOOD COUNT 2.97 10^6/uL (4.00-5.40)
[2023-05-23 17:26] LABS: PLATELET COUNT, AUTOMATED 20 10^3/uL (150-450)
[2023-05-23] MEDS ORDERED: ISOVUE-370 76% 100ML VIAL As Ordered ONE (17:26)
[2023-05-23] MEDS ORDERED: MULT-90 PO (19:51)
[2023-05-23] MEDS ORDERED: ONDA-84 PO (19:51)
[2023-05-23] MEDS ORDERED: DIPH2.5T15 PO (19:51)
[2023-05-23] MEDS ORDERED: HOME MED LIST COMPLETE! XX SCH (19:55)
[2023-05-23] MEDS ORDERED: ALBUTEROL 90 MCG/ACT 8GM HFA INHALER INH PRN (21:15)
[2023-05-23] MEDS ORDERED: IPRATROPIUM 0.5MG/ALBUTEROL 2.5MG INH SOL UD 3ML (DUONEB) NEB PRN (21:15)
[2023-05-23] MEDS ORDERED: VANCOMYCIN HCL 1 MG in IV FLUID PLACE HOLDER 1 EA IV SCH (21:15)
[2023-05-23] MEDS ORDERED: SODIUM CHLORIDE NASAL 0.65% SPRAY BTL (OCEAN) PRN (21:15)
[2023-05-23] MEDS ORDERED: AZELASTINE 137MCG NASAL SPY 30 ML (ASTELIN) PRN (21:15)
[2023-05-23] MEDS: ATORVASTATIN 10 MG TAB PO SCH (21:56)
[2023-05-23] MEDS: KCL 10MEQ/100ML SWI (KRUN) 100 ML IV ONE (21:57)
[2023-05-23] MEDS: NS 1,000 ML IV STA (22:06)
[2023-05-23 22:41] VITALS: BP 142/66; TEMP 101.1; O2SAT 98
[2023-05-23] MEDS: metroNIDAZOLE 500 MG in IV 1 EA IV SCH (23:51)
[2023-05-23] MEDS: ACETAMINOPHEN TAB 650MG DOSE (2X325MG) PO PRN (23:52)
[2023-05-24] VITALS (7 sets, daily range): BP systolic 117–144; BP diastolic 52–64; TEMP 97.8–100.4; O2SAT 94–98
[2023-05-24] MEDS: VANCOMYCIN HCL 750 MG, VIAL MATE ADAPTER 1 EACH in D5W 250 ML IV ONE (01:11)
[2023-05-24] MEDS: VANCOMYCIN HCL 500 MG in D5W MINI-BAG PLUS 100 ML IV ONE (02:29)
[2023-05-24] MEDS: CEFEPIME HCL 2 GM in D5W MINI-BAG PLUS 50 ML IV SCH (05:06)
[2023-05-24 05:27] LABS: HEMATOCRIT 28.3 % (36.0-47.0); HEMOGLOBIN 8.8 g/dl (12.0-15.5); MEAN CORPUSCULAR HEMOGLOBIN 31.8 pg (27.0-33.0); MEAN CORPUSCULAR HGB CONC 31.1 g/dl (32.0-36.5); MEAN CORPUSCULAR VOLUME 102.2 fl (80.0-96.0); RED BLOOD COUNT 2.77 10^6/uL (4.00-5.40); WHITE BLOOD COUNT 1.1 10^3/uL (4.0-10.0)
[2023-05-24 05:28] LABS: PLATELET COUNT, AUTOMATED 25 10^3/uL (150-450)
[2023-05-24 06:09] LABS: ALBUMIN 1.9 G/DL (3.2-5.2); ALKALINE PHOSPHATASE 285 U/L (46-116); ALT/SGPT 9 U/L (7.0-40); AST/SGOT < 8 U/L (<34); BLOOD UREA NITROGEN 18 MG/DL (9-23); CALCIUM LEVEL 6.7 MG/DL (8.3-10.6); CARBON DIOXIDE LEVEL 22 MMOL/L (20-31); CHLORIDE LEVEL 114 MMOL/L (98-107); CREATININE FOR GFR 1.14 MG/DL (0.55-1.30); GLOMERULAR FILTRATION RATE 48.5 (>32); GLUCOSE, FASTING 108 MG/DL (74-106); POTASSIUM SERUM 3.3 MMOL/L (3.5-5.1); SODIUM LEVEL 142 MMOL/L (136-145); TOTAL PROTEIN 4.2 G/DL (5.7-8.2)
[2023-05-24 06:14] LABS: ATYPICAL LYMPH 28 % (0-5); EOSINOPHILS 2 % (0-3); LYMPHOCYTES 35 % (16-44); METAMYELOCYTES 1 % (0-0); MONOCYTES 8 % (0-5); NEUTROPHILS 24 % (28-66); PLATELET ESTIMATE MARKED DECREASE (NORMAL)
[2023-05-24] MEDS: POTASSIUM CHLORIDE 10MEQ SR TABLET PO ONE (06:33)
[2023-05-24] MEDS: ADVAIR HFA 115/21MCG INHALER INH SCH (07:29)
[2023-05-24] MEDS ORDERED: LACTOBACILLUS ACIDOPHILUS CAP (BACID) PO SCH (08:00)
[2023-05-24] MEDS: VANCOMYCIN HCL 750 MG, VIAL MATE ADAPTER 1 EACH in D5W 250 ML IV SCH (10:13)
[2023-05-24] MEDS: FILGRASTIM 480 MCG/0.8 ML SYRINGE **SC ADMINISTRATION ONLY SC SCH (10:13)
[2023-05-24] MEDS: LR 1,000 ML IV SCH (10:14)
[2023-05-24] MEDS: PIPERACILLIN/TAZOBACTAM SOD 3.375 GM in D5W MINI-BAG PLUS 50 ML IV SCH (13:09)
[2023-05-24] MEDS: LOMOTIL 2.5MG/0.025MG TABLET PO SCH (18:14)
[2023-05-24] MEDS: CALCIUM CARBONATE 500 MG CHEW U/D PO STA (23:29)
[2023-05-25 04:13] VITALS: BP 120/57; TEMP 98.4; O2SAT 96
[2023-05-25 05:49] LABS: BASO % 0.9 % (0.0-1.0); EOS % 0.5 % (0.0-3.0); HEMATOCRIT 24.3 % (36.0-47.0); HEMOGLOBIN 7.6 g/dl (12.0-15.5); LYMPH # 0.5 10^3/uL (1.5-5.0); MEAN CORPUSCULAR HEMOGLOBIN 31.9 pg (27.0-33.0); MEAN CORPUSCULAR HGB CONC 31.3 g/dl (32.0-36.5); MEAN CORPUSCULAR VOLUME 102.1 fl (80.0-96.0); MONO # 0.2 10^3/uL (0.0-0.8); MONO % 11.2 % (2.0-8.0); NEUTROPHILS # 1.4 10^3/uL (1.5-8.5); NEUTROPHILS % 64.5 % (36.0-66.0); RED BLOOD COUNT 2.38 10^6/uL (4.00-5.40); WHITE BLOOD COUNT 2.1 10^3/uL (4.0-10.0)
[2023-05-25 05:57] LABS: PLATELET COUNT, AUTOMATED 27 10^3/uL (150-450)
[2023-05-25 06:13] LABS: ALBUMIN 1.7 G/DL (3.2-5.2); ALKALINE PHOSPHATASE 207 U/L (46-116); ALT/SGPT < 9 U/L (7.0-40); AST/SGOT < 8 U/L (<34); BILIRUBIN,TOTAL 0.7 MG/DL (0.3-1.2); BLOOD UREA NITROGEN 16 MG/DL (9-23); CALCIUM LEVEL 7.3 MG/DL (8.3-10.6); CARBON DIOXIDE LEVEL 22 MMOL/L (20-31); CHLORIDE LEVEL 115 MMOL/L (98-107); CREATININE FOR GFR 1.28 MG/DL (0.55-1.30); GLOMERULAR FILTRATION RATE 42.4 (>32); GLUCOSE, FASTING 97 MG/DL (74-106); POTASSIUM SERUM 3.1 MMOL/L (3.5-5.1); SODIUM LEVEL 143 MMOL/L (136-145); TOTAL PROTEIN 3.8 G/DL (5.7-8.2)
[2023-05-25 08:29] VITALS: BP 123/53; TEMP 96.8; O2SAT 97
[2023-05-25] MEDS: POTASSIUM CHLORIDE 10MEQ SR TABLET PO SCH (08:32)
[2023-05-25 13:08] VITALS: BP 124/78; TEMP 97.1; O2SAT 98
[2023-05-25 16:00] VITALS: BP 148/65; TEMP 96.9; O2SAT 97
[2023-05-25 19:42] VITALS: BP 123/60; TEMP 97.8; O2SAT 99
[2023-05-25 23:13] VITALS: BP 120/60; TEMP 97.6; O2SAT 98
[2023-05-25] MEDS: CALCIUM CARBONATE 500 MG CHEW U/D PO PRN (23:36)
[2023-05-26 03:17] VITALS: BP 123/56; TEMP 98.2; O2SAT 95
[2023-05-26 05:22] LABS: HEMATOCRIT 26.8 % (36.0-47.0); HEMOGLOBIN 8.3 g/dl (12.0-15.5); MEAN CORPUSCULAR VOLUME 103.5 fl (80.0-96.0); PLATELET COUNT, AUTOMATED 39 10^3/uL (150-450); RED BLOOD COUNT 2.59 10^6/uL (4.00-5.40); WHITE BLOOD COUNT 6.4 10^3/uL (4.0-10.0)
[2023-05-26 05:48] LABS: LYMPHOCYTES 17 % (16-44); MONOCYTES 3 % (0-5); NEUTROPHILS 77 % (28-66); PLATELET ESTIMATE MARKED DECREASE (NORMAL)
[2023-05-26 05:49] LABS: ALBUMIN 1.8 G/DL (3.2-5.2); ALKALINE PHOSPHATASE 185 U/L (46-116); ALT/SGPT < 9 U/L (7.0-40); ANISOCYTOSIS 1+; AST/SGOT < 8 U/L (<34); BILIRUBIN,TOTAL 0.7 MG/DL (0.3-1.2); BLOOD UREA NITROGEN 14 MG/DL (9-23); CALCIUM LEVEL 7.5 MG/DL (8.3-10.6); CARBON DIOXIDE LEVEL 23 MMOL/L (20-31); CHLORIDE LEVEL 114 MMOL/L (98-107); CREATININE FOR GFR 1.52 MG/DL (0.55-1.30); GLOMERULAR FILTRATION RATE 34.8 (>32); GLUCOSE, FASTING 76 MG/DL (74-106); POTASSIUM SERUM 3.2 MMOL/L (3.5-5.1); SODIUM LEVEL 145 MMOL/L (136-145); TOTAL PROTEIN 4.1 G/DL (5.7-8.2)
[2023-05-26 07:34] VITALS: BP 121/55; TEMP 98.3; O2SAT 97
[2023-05-26] MEDS: MAG SULF 1GM/100ML (MAG RUN) 100 ML IV SCH (08:17)
[2023-05-26] MEDS: MAGNESIUM OXIDE 400MG TAB (MAG-OX) PO SCH (08:17)
[2023-05-26] MEDS: POTASSIUM CHLORIDE 10MEQ SR TABLET PO ONE (08:18)
[2023-05-26 16:18] VITALS: BP 132/60; TEMP 96.8; O2SAT 97
[2023-05-26 20:01] VITALS: BP 136/59; TEMP 97; O2SAT 97
[2023-05-27 03:49] VITALS: BP 142/63; TEMP 97.5; O2SAT 95
[2023-05-27 05:41] LABS: BASO # 0.1 10^3/uL (0.0-0.2); BASO % 0.6 % (0.0-1.0); EOS % 0.4 % (0.0-3.0); HEMATOCRIT 27.3 % (36.0-47.0); HEMOGLOBIN 8.3 g/dl (12.0-15.5); LYMPH % 9.4 % (24.0-44.0); MEAN CORPUSCULAR HEMOGLOBIN 31.2 pg (27.0-33.0); MEAN CORPUSCULAR HGB CONC 30.4 g/dl (32.0-36.5); MEAN CORPUSCULAR VOLUME 102.6 fl (80.0-96.0); MONO # 0.8 10^3/uL (0.0-0.8); MONO % 7.4 % (2.0-8.0); NEUTROPHILS % 77.1 % (36.0-66.0); RED BLOOD COUNT 2.66 10^6/uL (4.00-5.40); WHITE BLOOD COUNT 10.4 10^3/uL (4.0-10.0)
[2023-05-27 05:51] LABS: PLATELET COUNT, AUTOMATED 49 10^3/uL (150-450)
[2023-05-27 06:14] LABS: ALBUMIN 1.8 G/DL (3.2-5.2); ALKALINE PHOSPHATASE 210 U/L (46-116); ALT/SGPT < 9 U/L (7.0-40); AST/SGOT < 8 U/L (<34); BILIRUBIN,TOTAL 0.5 MG/DL (0.3-1.2); BLOOD UREA NITROGEN 14 MG/DL (9-23); CALCIUM LEVEL 7.8 MG/DL (8.3-10.6); CARBON DIOXIDE LEVEL 23 MMOL/L (20-31); CHLORIDE LEVEL 118 MMOL/L (98-107); CREATININE FOR GFR 1.66 MG/DL (0.55-1.30); GLOMERULAR FILTRATION RATE 31.4 (>32); GLUCOSE, FASTING 73 MG/DL (74-106); POTASSIUM SERUM 4.3 MMOL/L (3.5-5.1); SODIUM LEVEL 146 MMOL/L (136-145)
[2023-05-27 07:42] VITALS: BP 132/64; TEMP 97.9; O2SAT 98
[2023-05-27] MEDS: LR 1,000 ML IV SCH (07:47)
[2023-05-27] MEDS ORDERED: ANTI2TAB16 PO (08:38)
[2023-05-27] MEDS ORDERED: HOME MED LIST COMPLETE! XX SCH (08:40)
[2023-05-27] MEDS: LOPERAMIDE 2 MG CAPLET PO PRN (12:24)
[2023-05-27 20:00] VITALS: BP 140/78; TEMP 98; O2SAT 94
[2023-05-27] MEDS: METOPROLOL SUCC *XL* 25MG TAB (TopROL *XL*) PO SCH (20:28)
[2023-05-27] MEDS: amLODIPine 5 MG TAB PO SCH (20:29)
[2023-05-28 04:00] VITALS: BP 131/60; TEMP 98.2; O2SAT 96
[2023-05-28 05:42] LABS: BASO # 0.1 10^3/uL (0.0-0.2); BASO % 0.7 % (0.0-1.0); EOS # 0.1 10^3/uL (0.0-0.5); EOS % 0.6 % (0.0-3.0); HEMATOCRIT 27.8 % (36.0-47.0); HEMOGLOBIN 8.4 g/dl (12.0-15.5); LYMPH # 1.1 10^3/uL (1.5-5.0); LYMPH % 11.4 % (24.0-44.0); MEAN CORPUSCULAR HEMOGLOBIN 31.8 pg (27.0-33.0); MEAN CORPUSCULAR HGB CONC 30.2 g/dl (32.0-36.5); MEAN CORPUSCULAR VOLUME 105.3 fl (80.0-96.0); MONO # 0.8 10^3/uL (0.0-0.8); MONO % 8.3 % (2.0-8.0); NEUTROPHILS # 7.3 10^3/uL (1.5-8.5); NEUTROPHILS % 73.1 % (36.0-66.0); RED BLOOD COUNT 2.64 10^6/uL (4.00-5.40)
[2023-05-28 05:45] LABS: PLATELET COUNT, AUTOMATED 66 10^3/uL (150-450)
[2023-05-28 06:17] LABS: ALBUMIN 1.7 G/DL (3.2-5.2); ALKALINE PHOSPHATASE 217 U/L (46-116); ALT/SGPT < 9 U/L (7.0-40); AST/SGOT 15 U/L (<34); BILIRUBIN,TOTAL 0.4 MG/DL (0.3-1.2); BLOOD UREA NITROGEN 14 MG/DL (9-23); CALCIUM LEVEL 7.4 MG/DL (8.3-10.6); CARBON DIOXIDE LEVEL 23 MMOL/L (20-31); CHLORIDE LEVEL 116 MMOL/L (98-107); CREATININE FOR GFR 1.68 MG/DL (0.55-1.30); GLUCOSE, FASTING 120 MG/DL (74-106); POTASSIUM SERUM 3.9 MMOL/L (3.5-5.1); SODIUM LEVEL 147 MMOL/L (136-145)
[2023-05-28 08:00] VITALS: BP 138/62; TEMP 97.8; O2SAT 97
[2023-05-28] MEDS: LOPERAMIDE 2 MG CAPLET PO PRN (10:07)
[2023-05-28] MEDS: OCTREOTIDE ACETATE 100MCG/ML VIAL **SC ADMINISTRATION ONLY SC SCH (10:08)
[2023-05-28 12:00] VITALS: BP 136/58; TEMP 97.3; O2SAT 98
[2023-05-28 16:53] VITALS: BP 132/49; TEMP 98.2; O2SAT 96
[2023-05-28 18:39] VITALS: BP 164/82; TEMP 96.6; O2SAT 99
[2023-05-28 21:08] VITALS: BP 140/60; TEMP 98.2; O2SAT 98
[2023-05-29 06:00] VITALS: BP 134/58; TEMP 98.2; O2SAT 98
[2023-05-29 06:18] LABS: BASO # 0.1 10^3/uL (0.0-0.2); BASO % 0.5 % (0.0-1.0); EOS # 0.1 10^3/uL (0.0-0.5); EOS % 0.6 % (0.0-3.0); HEMATOCRIT 26.7 % (36.0-47.0); HEMOGLOBIN 8.1 g/dl (12.0-15.5); LYMPH # 1.2 10^3/uL (1.5-5.0); LYMPH % 11.1 % (24.0-44.0); MEAN CORPUSCULAR HEMOGLOBIN 31.6 pg (27.0-33.0); MEAN CORPUSCULAR HGB CONC 30.3 g/dl (32.0-36.5); MEAN CORPUSCULAR VOLUME 104.3 fl (80.0-96.0); MONO # 0.9 10^3/uL (0.0-0.8); MONO % 8.3 % (2.0-8.0); NEUTROPHILS # 7.8 10^3/uL (1.5-8.5); NEUTROPHILS % 73.1 % (36.0-66.0); RED BLOOD COUNT 2.56 10^6/uL (4.00-5.40); WHITE BLOOD COUNT 10.7 10^3/uL (4.0-10.0)
[2023-05-29 06:20] LABS: PLATELET COUNT, AUTOMATED 74 10^3/uL (150-450)
[2023-05-29 06:29] LABS: CALCIUM LEVEL 7.3 MG/DL (8.3-10.6); CREATININE FOR GFR 1.42 MG/DL (0.55-1.30); GLOMERULAR FILTRATION RATE 37.6 (>32); POTASSIUM SERUM 3.6 MMOL/L (3.5-5.1)
[2023-05-29] MEDS: METAMUCIL (PSYLLIUM) PACKET PO SCH (09:16)
[2023-05-29] MEDS ORDERED: META1POW PO (11:38)
[2023-05-29] MEDS ORDERED: MAGN400T2 PO (11:38)
[2023-05-29] MEDS ORDERED: CALC200T15 PO (11:38)
[2023-05-29] MEDS ORDERED: SODIUM CHLORIDE 0.9% INJ 10 ML SYR IV PRN (14:00)
[2023-05-30] MEDS ORDERED: SODIUM CHLORIDE 0.9% INJ 10 ML SYR IV SCH (09:00)
== END 2023-05-29 14:30 | disposition home health service (06) | DRG 809 ==
LOC: EDBD 15:40 → M ED 15:40 → M ED INP 20:01 → M PCU 22:17 → M MSPAV 05-28 18:34
PROVIDERS: ADMIT Internal Medicine; ATTEND Student in an Organized Health Care Education/Training Program
DX: D70.9 Neutropenia, unspecified (principal); C78.7 Secondary malignant neoplasm of liver and intrahepatic bile duct; C64.2 Malignant neoplasm of left kidney, except renal pelvis; C20 Malignant neoplasm of rectum; K57.92 Diverticulitis of intestine, part unspecified, without perforation or abscess without bleeding; I13.0 Hypertensive heart and chronic kidney disease with heart failure and stage 1 through stage 4 chronic kidney disease, or unspecified chronic kidney disease; C78.00 Secondary malignant neoplasm of unspecified lung; C68.0 Malignant neoplasm of urethra; K52.1 Toxic gastroenteritis and colitis; N17.9 Acute kidney failure, unspecified; I50.9 Heart failure, unspecified; N18.30 Chronic kidney disease, stage 3 unspecified; D50.9 Iron deficiency anemia, unspecified; J44.9 Chronic obstructive pulmonary disease, unspecified; E87.6 Hypokalemia; I27.81 Cor pulmonale (chronic); R50.81 Fever presenting with conditions classified elsewhere; D61.810 Antineoplastic chemotherapy induced pancytopenia; E83.42 Hypomagnesemia; E83.51 Hypocalcemia; E78.5 Hyperlipidemia, unspecified; D55.9 Anemia due to enzyme disorder, unspecified; I34.0 Nonrheumatic mitral (valve) insufficiency; Q77.6 Chondroectodermal dysplasia; Z92.3 Personal history of irradiation; Z88.6 Allergy status to analgesic agent; Z88.8 Allergy status to other drugs, medicaments and biological substances; Z79.899 Other long term (current) drug therapy; Z86.73 Personal history of transient ischemic attack (TIA), and cerebral infarction without residual deficits; Z98.41 Cataract extraction status, right eye; Z98.42 Cataract extraction status, left eye; R19.7 Diarrhea, unspecified

== ENCOUNTER → 2023-06-03 | Outpatient (REF) | payer OTHER ==
[~2023-06-03] MED LIST changes: +ANTI2TAB16 PO; +CALC200T15 PO; +DIPH2.5T15 PO; +META1POW PO; +MULT-90 PO
[2023-06-03 15:44] LABS: HEMOGLOBIN A1c 5.6 % (4.0-6.0)
== END ==
LOC: M LAB REF 14:51
PROVIDERS: ATTEND Internal Medicine
DX: E66.9 Obesity, unspecified (principal); Z79.899 Other long term (current) drug therapy

== ENCOUNTER → 2023-07-16 | Outpatient (REF) | payer OTHER ==
[~2023-07-16] MED LIST changes: +DIPH1TAB80 PO; +DIPH1TAB81 PO; -DIPH2.5T14 PO; -DIPH2.5T15 PO
[2023-07-16 14:23] LABS: BASO % 0.4 % (0.0-1.0); EOS # 0.1 10^3/uL (0.0-0.5); EOS % 1.9 % (0.0-3.0); HEMATOCRIT 26.7 % (36.0-47.0); HEMOGLOBIN 8.1 g/dl (12.0-15.5); LYMPH # 1.4 10^3/uL (1.5-5.0); LYMPH % 26.2 % (24.0-44.0); MEAN CORPUSCULAR HEMOGLOBIN 32.1 pg (27.0-33.0); MEAN CORPUSCULAR HGB CONC 30.3 g/dl (32.0-36.5); MONO # 0.4 10^3/uL (0.0-0.8); MONO % 8.5 % (2.0-8.0); NEUTROPHILS # 3.3 10^3/uL (1.5-8.5); NEUTROPHILS % 62.8 % (36.0-66.0); PLATELET COUNT, AUTOMATED 140 10^3/uL (150-450); RED BLOOD COUNT 2.52 10^6/uL (4.00-5.40); WHITE BLOOD COUNT 5.2 10^3/uL (4.0-10.0)
[2023-07-16 15:42] LABS: ALBUMIN 1.8 G/DL (3.2-5.2); BILIRUBIN,TOTAL 0.4 MG/DL (0.3-1.2); CALCIUM LEVEL 7.5 MG/DL (8.3-10.6); CREATININE FOR GFR 1.15 MG/DL (0.55-1.30); MAGNESIUM LEVEL 1.6 MG/DL (1.8-2.4); POTASSIUM SERUM 2.8 MMOL/L (3.5-5.1); TOTAL PROTEIN 5.3 G/DL (5.7-8.2)
== END ==
LOC: M SHH 13:28
PROVIDERS: ATTEND Internal Medicine
DX: N18.32 Chronic kidney disease, stage 3b (principal); E83.42 Hypomagnesemia; I50.32 Chronic diastolic (congestive) heart failure

== ENCOUNTER → 2023-07-18 | Outpatient (REF) | payer OTHER ==
[2023-07-18 15:24] LABS: ALBUMIN 1.7 G/DL (3.2-5.2); ALKALINE PHOSPHATASE 113 U/L (46-116); ALT/SGPT < 9 U/L (7.0-40); AST/SGOT 16 U/L (<34); BILIRUBIN,TOTAL 0.2 MG/DL (0.3-1.2); BLOOD UREA NITROGEN 22 MG/DL (9-23); CALCIUM LEVEL 7.7 MG/DL (8.3-10.6); CARBON DIOXIDE LEVEL 26 MMOL/L (20-31); CHLORIDE LEVEL 111 MMOL/L (98-107); CREATININE FOR GFR 1.16 MG/DL (0.55-1.30); GLOMERULAR FILTRATION RATE 47.5 (>32); GLUCOSE, FASTING 91 MG/DL (74-106); MAGNESIUM LEVEL 1.6 MG/DL (1.8-2.4); POTASSIUM SERUM 3.8 MMOL/L (3.5-5.1); SODIUM LEVEL 143 MMOL/L (136-145); TOTAL PROTEIN 4.9 G/DL (5.7-8.2)
== END ==
LOC: M SHH 14:30
PROVIDERS: ATTEND Internal Medicine
DX: E87.6 Hypokalemia (principal); E83.42 Hypomagnesemia

== ENCOUNTER → 2023-07-26 | Outpatient (REF) | payer OTHER ==
[2023-07-26 14:30] LABS: BASO % 0.5 % (0.0-1.0); EOS # 0.1 10^3/uL (0.0-0.5); EOS % 2.6 % (0.0-3.0); HEMATOCRIT 26.3 % (36.0-47.0); LYMPH % 22.5 % (24.0-44.0); MEAN CORPUSCULAR HEMOGLOBIN 32.7 pg (27.0-33.0); MEAN CORPUSCULAR HGB CONC 30.4 g/dl (32.0-36.5); MEAN CORPUSCULAR VOLUME 107.3 fl (80.0-96.0); MONO # 0.3 10^3/uL (0.0-0.8); MONO % 7.5 % (2.0-8.0); NEUTROPHILS # 2.9 10^3/uL (1.5-8.5); NEUTROPHILS % 66.7 % (36.0-66.0); PLATELET COUNT, AUTOMATED 174 10^3/uL (150-450); RED BLOOD COUNT 2.45 10^6/uL (4.00-5.40); WHITE BLOOD COUNT 4.3 10^3/uL (4.0-10.0)
[2023-07-26 14:54] LABS: BILIRUBIN,TOTAL 0.3 MG/DL (0.3-1.2); CALCIUM LEVEL 8.1 MG/DL (8.3-10.6); CREATININE FOR GFR 1.02 MG/DL (0.55-1.30); GLOMERULAR FILTRATION RATE 55.1 (>32); POTASSIUM SERUM 4.9 MMOL/L (3.5-5.1); TOTAL PROTEIN 5.8 G/DL (5.7-8.2)
== END ==
LOC: M SHH 13:08
PROVIDERS: ATTEND Internal Medicine
DX: N18.32 Chronic kidney disease, stage 3b (principal); I13.0 Hypertensive heart and chronic kidney disease with heart failure and stage 1 through stage 4 chronic kidney disease, or unspecified chronic kidney disease; I50.32 Chronic diastolic (congestive) heart failure; C54.2 Malignant neoplasm of myometrium

== ENCOUNTER → 2023-08-01 | Outpatient (REF) | payer OTHER ==
[2023-08-01 15:03] LABS: CREATININE FOR GFR 1.09 MG/DL (0.55-1.30); POTASSIUM SERUM 4.9 MMOL/L (3.5-5.1)
== END ==
LOC: M SHH 13:57
PROVIDERS: ATTEND Internal Medicine
DX: E87.6 Hypokalemia (principal)

== ENCOUNTER 2023-09-03 09:52 | Inpatient (IN) | payer OTHER, MEDICAID ==
[~2023-09-03] VITALS: Ht 134.6 cm; Wt 47.7 kg
[2023-09-03 10:41] LABS: BASO % 0.1 % (0.0-1.0); EOS % 0.1 % (0.0-3.0); HEMATOCRIT 25.5 % (36.0-47.0); HEMOGLOBIN 7.7 g/dl (12.0-15.5); LYMPH # 0.9 10^3/uL (1.5-5.0); LYMPH % 5.6 % (24.0-44.0); MEAN CORPUSCULAR HEMOGLOBIN 31.4 pg (27.0-33.0); MEAN CORPUSCULAR HGB CONC 30.2 g/dl (32.0-36.5); MEAN CORPUSCULAR VOLUME 104.1 fl (80.0-96.0); MONO # 0.9 10^3/uL (0.0-0.8); MONO % 5.3 % (2.0-8.0); NEUTROPHILS # 14.8 10^3/uL (1.5-8.5); NEUTROPHILS % 88.4 % (36.0-66.0); PLATELET COUNT, AUTOMATED 245 10^3/uL (150-450); RED BLOOD COUNT 2.45 10^6/uL (4.00-5.40); WHITE BLOOD COUNT 16.7 10^3/uL (4.0-10.0)
[2023-09-03 11:24] LABS: ALBUMIN 3.3 G/DL (3.2-5.2); BILIRUBIN,DIRECT 0.1 MG/DL (<0.4); BILIRUBIN,TOTAL 0.4 MG/DL (0.3-1.2); CALCIUM LEVEL 9.3 MG/DL (8.3-10.6); CREATININE FOR GFR 1.4 MG/DL (0.55-1.30); GLOMERULAR FILTRATION RATE 38.2 (>32); POTASSIUM SERUM 6.5 MMOL/L (3.5-5.1); TOTAL PROTEIN 7.2 G/DL (5.7-8.2)
[2023-09-03] MEDS: NS 1,000 ML IV SCH (12:25)
[2023-09-03] MEDS: ONDANSETRON 4MG 2ML VIAL IV ONE (12:25)
[2023-09-03] MEDS: MORPHINE 2 MG/ML 1ML VIAL IV PRN (12:25)
[2023-09-03] MEDS: PATIROMER SORBITEX CALCIUM 8.4 GM POWDER PACKET (VELTASSA) PO ONE (13:31)
[2023-09-03] MEDS: DEXTROSE 50% 50ML SYRINGE IV ONE (13:31)
[2023-09-03] MEDS: CALCIUM CHLORIDE 10% 1 GM/10 ML SYR IV ONE (13:31)
[2023-09-03] MEDS: SODIUM BICARBONATE 8.4% INJ 50ML SYRINGE IV ONE (13:32)
[2023-09-03] MEDS: HumuLIN R (REGULAR) INSULIN (NovoLIN R) **100U/ML** PER UNIT IV ONE (13:32)
[2023-09-03 13:55] VITALS: BP 137/63; TEMP 97.8; O2SAT 97
[2023-09-03] MEDS ORDERED: LORazepam 1 MG TAB PO PRN (14:20)
[2023-09-03] MEDS ORDERED: AMLO25TA PO (14:20)
[2023-09-03] MEDS ORDERED: VITA200012 PO (14:20)
[2023-09-03] MEDS ORDERED: SLOWTAB2 PO (14:23)
[2023-09-03] MEDS ORDERED: FERR325T3 PO (14:23)
[2023-09-03] MEDS ORDERED: HOME MED LIST COMPLETE! XX SCH (14:25)
[2023-09-03] MEDS ORDERED: ALBUTEROL 90 MCG/ACT 8GM HFA INHALER INH PRN (15:00)
[2023-09-03] MEDS: ACETAMINOPHEN 650MG ER TAB (TYLENOL ARTHRITIS) PO PRN (17:52)
[2023-09-03] MEDS: ONDANSETRON 4MG TAB PO PRN (18:28)
[2023-09-04] MEDS: MORPHINE 10MG/0.5ML ORAL CONCENTRATE SOLUTION U/D SL PRN (13:10)
[2023-09-04] MEDS: DOCUSATE SODIUM 100MG CAPSULE PO SCH (22:29)
[2023-09-06] MEDS: SCOPOLAMINE 1MG TRANSDERMAL PATCH TOP PRN (13:08)
[2023-09-06] MEDS ORDERED: SODIUM CHLORIDE NASAL 0.65% SPRAY BTL (OCEAN) PRN (13:15)
[2023-09-06] MEDS ORDERED: CEPACOL LOZENGE PO PRN (13:15)
[2023-09-06] MEDS: MOM 30ML SUSPENSION UDC PO PRN (14:35)
[2023-09-08] MEDS: CALCIUM CARBONATE 500 MG CHEW U/D PO PRN (12:13)
[2023-09-16] MEDS ORDERED: SFHMOMUDC PO (08:55)
[2023-09-16] MEDS ORDERED: HYOS125TA PO (08:55)
[2023-09-16] MEDS ORDERED: ATIV1TAB10 PO (08:55)
[2023-09-16] MEDS ORDERED: COLA100C5 PO (08:55)
[2023-09-16] MEDS ORDERED: MORP1SOL5 PO (08:55)
[2023-09-16] MEDS: METOPROLOL SUCC *XL* 25MG TAB (TopROL *XL*) PO SCH (20:55)
[2023-09-29] MEDS: DOCUSATE SODIUM 100MG CAPSULE PO ONE (17:52)
[2023-09-29] MEDS: SENNA 8.6 MG TAB (SENOKOT) PO SCH (21:00)
[2023-09-29] MEDS: DOCUSATE SODIUM 100MG CAPSULE PO SCH (21:00)
[2023-10-08 21:27] VITALS: BP 125/57
[2023-10-12] MEDS ORDERED: SENNA 8.6 MG TAB (SENOKOT) PO SCH (09:00)
[2023-10-12] MEDS: SIMETHICONE 80MG CHEW TAB PO PRN (18:55)
[2023-10-13] MEDS: SENNA 8.6 MG TAB (SENOKOT) PO SCH (08:16)
== END 2023-10-16 12:45 | DRG 951 ==
LOC: M ED 09:52 → M ED INP 15:15 → OBSVTOIN 15:16 → M MS5PR 16:30
PROVIDERS: ADMIT Internal Medicine; ATTEND Student in an Organized Health Care Education/Training Program
DX: Z51.5 Encounter for palliative care (principal); E88.3 Tumor lysis syndrome; C78.01 Secondary malignant neoplasm of right lung; E46 Unspecified protein-calorie malnutrition; C78.7 Secondary malignant neoplasm of liver and intrahepatic bile duct; N17.9 Acute kidney failure, unspecified; C20 Malignant neoplasm of rectum; C78.02 Secondary malignant neoplasm of left lung; D62 Acute posthemorrhagic anemia; C68.0 Malignant neoplasm of urethra; I10 Essential (primary) hypertension; R31.9 Hematuria, unspecified; E78.5 Hyperlipidemia, unspecified; J44.9 Chronic obstructive pulmonary disease, unspecified; J45.909 Unspecified asthma, uncomplicated; D63.8 Anemia in other chronic diseases classified elsewhere; K59.00 Constipation, unspecified; D50.9 Iron deficiency anemia, unspecified; C67.9 Malignant neoplasm of bladder, unspecified; E11.9 Type 2 diabetes mellitus without complications; Z66 Do not resuscitate; E87.5 Hyperkalemia; Z98.41 Cataract extraction status, right eye; Z98.42 Cataract extraction status, left eye; Z87.891 Personal history of nicotine dependence; Z92.3 Personal history of irradiation; Z92.21 Personal history of antineoplastic chemotherapy; Z79.899 Other long term (current) drug therapy; Z88.8 Allergy status to other drugs, medicaments and biological substances